=== PATIENT | female | born 1930 | race Caucasian/White ===

== ENCOUNTER 2016-06-01 15:51 | Emergency (ER) | payer OTHER ==
[~2016-06-01] VITALS: Ht 170.2 cm; Wt 79.4 kg
[~2016-06-01 15:51] MED LIST: ALBU8.5H2 IH; ASPI-605 PO; BLOO-129 IN; LEVO500T15 PO; SIMV40TA5 PO
[2016-06-01] MEDS ORDERED: DEXTROSE 50%-WATER 50 ML DISP.SYRIN ONE (16:03)
[2016-06-01 16:14] LABS: BASOPHILS # (AUTO) 0.3 /CMM (0.0-0.2); BASOPHILS % (AUTO) 1.4 % (0.0-2.0); DIFF TOTAL % 100 %; EOSINOPHILS # (AUTO) 1.3 /CMM (0.0-0.7); EOSINOPHILS % (AUTO) 6.6 % (0.0-6.0); HEMATOCRIT 51 % (33-45); HEMOGLOBIN 16.3 g/dL (11.5-14.8); LYMPHOCYTES # (AUTO) 3.7 /CMM (0.8-4.8); LYMPHOCYTES % (AUTO) 19.2 % (20.0-44.0); MEAN CORPUSCULAR HEMOGLOBIN 29 PG (26.0-33.0); MEAN CORPUSCULAR HGB CONC 32 g/dl (31.0-36.0); MEAN CORPUSCULAR VOLUME 91 fL (82-100); NEUTROPHILS # (AUTO) 12.7 /CMM (1.8-8.9); NEUTROPHILS % (AUTO) 67.8 % (43.0-81.0); PLATELET COUNT (AUTO) 619 /CMM (150-450); RED BLOOD CELL COUNT(AUTO) 5.63 MIL/uL (4.0-5.2)
[2016-06-01] MEDS ORDERED: IV SET PRIMARY 1 EA INFUS.SET MC ONE ×2 (16:24→19:06)
[2016-06-01] MEDS ORDERED: IV NS 0.9% 500 ML IV ONE ×2 (16:24→19:06)
[2016-06-01 16:28] LABS: CALCIUM, SERUM 9.3 mg/dL (8.5-10.1); POTASSIUM 4.7 mmol/L (3.5-5.1)
[2016-06-01 16:29] LABS: INR 0.98 (0.87-1.13); PROTHROMBIN TIME 10.3 SECS (9.5-12.7)
[2016-06-01] MEDS ORDERED: IV NS 0.9% 500 ML BAG IV ONE ×2 (16:30→19:30)
[2016-06-01] MEDS ORDERED: DEXTROSE 50%-WATER 50 ML DISP.SYRIN IV ONE (16:30)
[2016-06-01 16:40] LABS: ALBUMIN 2.9 g/dL (3.4-5.0); BILIRUBIN,DIRECT 0.1 mg/dL (0.0-0.2); BILIRUBIN,TOTAL 0.3 mg/dL (0.2-1.0); INDIRECT BILIRUBIN 0.2 mg/dL (0.0-1.1)
[2016-06-01 17:16] LABS: KETONES,URINE 1+ (NEGATIVE); LEUKOCYTE ESTERASE ,URINE TRACE (NEGATIVE)
[2016-06-01 17:21] LABS: ADD UA MICROSCOPIC YES
[2016-06-01 17:29] LABS: ADD URINE CULTURE YES
[2016-06-01] MEDS ORDERED: IV SET PRIMARY PUMP SET 1 EA INFUS.SET MC ONE (18:17)
[2016-06-01] MEDS ORDERED: CEFTRIAXONE 1GM BAG (ER ONLY) 50 ML IV ONE (18:17)
[2016-06-01] MEDS ORDERED: CEFTRIAXONE 1GM BAG (ER ONLY) 1 GM/50 ML PIGGYBACK IV ONE (18:30)
[2016-06-01 19:36] VITALS: BP 135/84
== END 2016-06-01 19:41 | disposition home or self-care (01) ==
LOC: ER 15:54
DX: E11.649 Type 2 diabetes mellitus with hypoglycemia without coma (principal); N39.0 Urinary tract infection, site not specified; F03.90 Unspecified dementia, unspecified severity, without behavioral disturbance, psychotic disturbance, mood disturbance, and anxiety; I10 Essential (primary) hypertension; H26.9 Unspecified cataract; Z79.82 Long term (current) use of aspirin; R79.1 Abnormal coagulation profile
CPT/HCPCS: 36415; 71010-TC; 80048-TC; 80076-TC; 81000-TC; 82962-TC; 85025-TC; 85730-TC; 87086-TC; 87186-TC; A4606; J0696; J7040; Z7610